=== PATIENT | female | born 1970 | race Two or more races ===

== ENCOUNTER 2019-04-15 12:59 | Emergency (ER) | payer OTHER ==
[~2019-04-15] VITALS: Ht 165.1 cm; Wt 96.2 kg
[2019-04-15] MEDS ORDERED: BENAZEPRIL HCL10 MG ORAL (13:10)
[2019-04-15 13:13] VITALS: BP 132/83
--- NOTE | 2019-04-15 13:13 | NUR ---
ED Nurse Note: PT walked in to ED for C/O abdominal pain with N/V/D and headache since 0300 this morning.
--- NOTE | 2019-04-15 13:36 | NUR ---
ED Nurse Note: Report given to DINORAH Biggs Endorsed plan of care
--- NOTE | 2019-04-15 13:58 | Emergency Room Report ---
History of Present Illness General Chief Complaint: Abdominal Pain Source: Patient Present Illness HPI 48 YO female presents to the ED c/o N/V/D x Ultiva times since this morning. Daughter and son have similar symptoms. Patient denies blood in the vomit or stool. Patient denies black tarry stools. Patient denies fevers or chills, recent travel, abdominal pain or tenderness. Denies recent THC product usage. Denies ETOH use. Patient reports some abdominal cramping prior to episodes of vomiting or having loose bowel movements. Patient has not taken any medication for symptoms. Patient reports only past medical history is high blood pressure and diabetes. Patient reports difficulty with attempts to drink fluids. Allergies: Coded Allergies: No Known Allergies (Unverified , 04/15/19) Patient History Past Medical History: see triage record Past Surgical History: none Pertinent Family History: none Last Menstrual Period: Mar 2019 Now: No : 4 Para: 2 Reviewed Nursing Documentation: PMH: Agreed; PSxH: Agreed Nursing Documentation-PMH Past Medical History: No History, Except For Hx Hypertension: Yes Hx Diabetes: Yes Review of Systems All Other Systems: negative except mentioned in HPI Physical Exam Vital Signs Date Time Temp Pulse Resp B/P (MAP) Pulse Ox O2 Delivery O2 Flow Rate FiO2 04/15/19 13:08 98.2 84 19 137/83 (101) 98 Room Air Sp02 EP Interpretation: reviewed, normal General Appearance: no apparent distress, alert, GCS 15, non-toxic Head: normocephalic, atraumatic Eyes: bilateral eye normal inspection, bilateral eye PERRL ENT: hearing grossly normal, normal voice Neck: full range of motion Respiratory: lungs clear, normal breath sounds, speaking full sentences Cardiovascular #1: regular rate, rhythm Gastrointestinal: normal bowel sounds - hyperactive in all 4 quadrants. , non tender, soft, no peritonitis, non-distended, no guarding Genitourinary: normal inspection, no CVA tenderness Musculoskeletal: normal range of motion, gait/station normal, non-tender Neurologic: alert, motor strength/tone normal, oriented x3, sensory intact, responsive, speech normal Psychiatric: judgement/insight normal Skin: normal color Medical Decision Making PA Attestation Dr. Jauregui is my supervising Physician whom patient management has been discussed with. Diagnostic Impression: Primary Impression: Nausea vomiting and diarrhea ER Course 48 YO female presents to the ED c/o N/V/D x Ultiva times since this morning. Daughter and son have similar symptoms. Patient denies blood in the vomit or stool. Patient denies black tarry stools. Patient denies fevers or chills, recent travel, abdominal pain or tenderness. Denies recent THC product usage. Denies ETOH use. Patient reports some abdominal cramping prior to episodes of vomiting or having loose bowel movements. Patient has not taken any medication for symptoms. Patient reports only past medical history is high blood pressure and diabetes. Patient reports difficulty with attempts to drink fluids. Ddx considered but are not limited to GE, colitis, acute appy, SBO, hyperglycemia, Cyclical Vomiting secondary to THC, dehydration just to name a few Vital signs: pt. is afebrile, H&PE are most consistent with GE most likely viral in etiology, no evidence to suggest acute abdomen on physical exam. ORDERS: ED INTERVENTIONS: -1000 NS iv hydration, -Zofran 4mg--patient did not tolerate medication -Zofrarn 4mg IV -Pepcid IV -GI CoCktail After above interventions this patient successfully completed oral fluid challenge without nausea or vomiting. DISCHARGE: At this time pt. is stable for d/c to home. Will provide printed patient care instructions, and any necessary prescriptions. Care plan and follow up instructions have been discussed with the patient prior to discharge. Last Vital Signs Date Time Temp Pulse Resp B/P (MAP) Pulse Ox O2 Delivery O2 Flow Rate FiO2 04/15/19 13:13 98.2 90 19 132/83 98 Room Air Disposition: HOME, SELF-CARE Condition: Stable Scripts Ranitidine Hcl* (ZANTAC*) 150 Mg Tablet 150 MG ORAL TWICE A DAY for 10 Days, #20 TAB Prov: Zoe Santos 04/15/19 Dicyclomine Hcl* (DICYCLOMINE HCL*) 10 Mg Capsule 10 MG ORAL TID, #10 CAP Prov: Zoe Santos 04/15/19 Ondansetron Odt* (ZOFRAN ODT*) 4 Mg Tab.rapdis 4 MG BC EVERY 6 HOURS PRN for Nausea & Vomiting, #10 TAB 0 Refills Prov: Zoe Santos 04/15/19 Referrals: [facility] Patient Instructions: Viral Gastroenteritis, Adult Additional Instructions: Take medications as directed. Follow up with a Primary Care Provider in 3 days, even if your symptoms have resolved. --Please review list of primary care clinics, if you do not already have a primary care provider Return sooner to ED if new symptoms occur, or current symptoms become worse. - Please note that this Emergency Department Report was dictated using [employer]Send[employer] stripper technology software, occasionally this can lead to erroneous entry secondary to interpretation by the dictation equipment. Zoe Santos Apr 15, 2019 13:58
[2019-04-15] MEDS ORDERED: Lidocaine 2% Visc 15ml soln ORAL ONE (14:45)
[2019-04-15] MEDS ORDERED: Dicyclomine HCl 10mg/5ml oral soln ORAL ONE (14:45)
[2019-04-15] MEDS ORDERED: Mylanta II UD 30ml ORAL ONE (14:45)
[2019-04-15] MEDS ORDERED: ONDANSETRON ODT4 MG BC (15:46)
[2019-04-15] MEDS ORDERED: ZANTAC150 MG ORAL (15:46)
[2019-04-15] MEDS ORDERED: DICYCLOMINE HCL10 MG ORAL (15:46)
--- NOTE | 2019-04-15 16:03 | NUR ---
ER DISCHARGE NOTE: Patient is cleared to be discharged per ERMD, pt is aox4, on room air, with stable vital signs. pt was given dc and prescription instructions, pt was able to verbalize understanding, pt id band and iv site removed without complications. pt is able to ambulate with steady gait. pt took all belongings.
[2019-04-15 16:04] VITALS: BP 128/77
== END 2019-04-15 16:03 | disposition home or self-care (01) ==
LOC: EMR 14:45
DX: R11.2 Nausea with vomiting, unspecified (principal); R19.7 Diarrhea, unspecified; E11.9 Type 2 diabetes mellitus without complications; I10 Essential (primary) hypertension
CPT/HCPCS: 96361; 96374; 96375; J2405; J7030; S0028; Z7502; 99284